=== PATIENT | female | born 1940 | race Caucasian/White ===

== ENCOUNTER 2021-01-13 09:00 | Outpatient (RCR) | payer MEDICARE, SELFPAY ==
--- NOTE | 2020-12-23 10:22 | PTOPEVAL ---
INITIAL PHYSICAL THERAPY EVALUATION and PLAN OF CARE Thank you for referring Parisa Cancino to [facility].? Parisa is scheduled to be seen for physical therapy? 1x/week for 3 weeks. Please review, sign, date and return this plan of care ERNESTO. I agree with and certify that the following plan of care is medically necessary. Referring Physician Date Admitting Provider: Attending Provider: Robbie Napier, MD Referring Provider: *PT Outpatient Evaluation Start: 12/23/20 09:09 Freq: Status: Active Protocol: Document 12/23/20 09:05 ABILIO (Rec: 12/23/20 10:19 ABILIO [id number]) Therapy Assessment Status Assessment Status Assessment Status Evaluation Outpatient Past Medical History Past Medical History Source of Past Medical History Patient Cardiovascular History Hx Hypertension Yes Gastrointestinal History Hx Diverticulitis Yes: surgery 2018 Musculoskeletal History Hx Arthritis Yes: generalized Hx Back Pain Yes Endocrine History Hx Diabetes Yes HEENT History Hx Cataracts Yes: bilat surgery Reproductive History Hx Hysterectomy Yes: 1985 Evaluation Information Problem Diagnosis peripheral neuropathy Onset year and a half for balance, tingling x several years Subjective Information December reports being off balance Query Text:As Reported By Patient/ every once in awhile with Family activities. Tingling sensation into feet off and on x several years. Does have 2 gum ball trees in front of her yard - has fallen on them. Also has back problems. Tries to keep up yard work - getting more difficult as she ages. Prior Level of Function Activity Level (Last 3 Months) Occupation retired Hand Dominance Right Medications Home Meds (Include: OTC, RX, Vitamins, amolodipine, Metformin, Herbals, Dose, Route,and Frequency) hydroclorothiazide, Vitamins, Query Text:Home Med Entries Will No Calcium, eye drops, baby Longer Recall From Past Visits. Home aspirin Meds Must Be Re-entered With Each Visit. Home Setting Home Type House,Multiple Levels Environmental Barriers Stairs, 2-4,Stairs, Greater than 4 Living Situation Alone Mobility Assistive Devices (Used Last 3 None Months) Comments Additional Prior Level of Function recreation - listen to sons Comments play music, babysits great
--- NOTE | 2021-01-01 08:31 | PCPTNOTE ---
Patient did not show up for scheduled appointment this date. Called patient - phone number was no longer in service.
--- NOTE | 2021-01-13 13:54 | PTOPEVAL ---
PHYSICAL THERAPY DISCHARGE SUMMARY Thank you for referring Parisa Cancino to [facility].? Parisa has been seen x 3 visits. She has made gains with balance ability - especially on uneven ground. She is to continue with her HEP. I agree with Parisa's discharge from PT. Referring Physician Date Admitting Provider: Attending Provider: Robbie Napier, MD Referring Provider: Therapy Assessment Status Assessment Status Assessment Status Discharge Evaluation Information Problem Diagnosis peripheral neuropathy Subjective Information Parisa states that she is more Query Text:As Reported By Patient/ confident walking around Family outside. She was even able to walk on some landscape stone without fear of falling. She would like to start walking again - but the weather is too hot for her right now. Pain Assessment Timing of Pain Assessment Timing of Pain Assessment Assessment Self Report Self Report Pain Level 0 Pain Score Pain Score 0: Self Report Lower Extremity Muscle Strength Testing Hip Strength Bilateral Hip Abduction Strength 4 Good Balance Assessment Guardado Balance Assessment Sitting to Standing Independent w/out Hands Unsupported Stance Ability Safely- 2 minutes Sitting Unsupported, Feet on Floor Safely- 2 minutes Standing to Sitting Safely, Minimal Hand Use Transfer Ability Safely, Minimal Hand Use Unsupported Stance- Eyes Closed Safely, 10 seconds Unsupported Stance- Feet Together Independent, 1 minute Reaching Forward while Standing Confidently, 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 From Floor Independent/Safe Look Behind Shoulder - Standing Shifts Weight Well Turning 360 Degrees Turns Bilateral, < 4 secs Unsupported Stance, Alternating Feet on (I)- 8 Steps in 20 secs Stair Unsupported Tandem Stance Small Step- 30 seconds Unilateral Leg Stance Lifts Leg/Unable to Hold GUARDADO Balance Evaluation Total Score (/56 51 points) Comments standing on foam - eyes closed - sway but stable - 30 sec Time Up Go (TUG) Assistive Devices None Comments 9.56 5 Time Sit to Stand Time in Seconds 12.28 5 Time Sit to Stand Comments hands across chest Query Text:Normative Data: If Greater Than 15 Seconds, 74% Increase Risk for Recurrent Falls Stair Climbing Assessment Stair Climbing Assessment Number of Steps Climbed (Steps) 4 Number of Repetitions (Repetitions) 1 Technique Alternating Steps Stair Climbing Direction Both Up and Down Stair Climbing Comments using 1 railing - safe pattern
== END 2021-01-18 12:38 | disposition home or self-care (01) ==
LOC: ANHHIPT 09:00
PROVIDERS: PCP Internal Medicine; Visit Provider Internal Medicine
DX: G62.9 Polyneuropathy, unspecified (principal); R26.2 Difficulty in walking, not elsewhere classified
CPT/HCPCS: 97110; 97162

== ENCOUNTER 2021-02-24 00:17 | Day surgery (SDC) | payer MEDICARE, SELFPAY ==
[2021-02-16 14:09] VITALS: BMI 34.4
[2021-02-24 06:58] VITALS: BP 183/100; PULSE 104; RESP 24; TEMP 36.2; O2SAT 98; BMI 32.5
--- NOTE | 2021-02-24 07:07 | WPDANESEPPF ---
Anes - Initial Pre Proc Eval Procedure: Operation Date: 02/24/21 08:00 Proposed Procedures p Colonoscopy - Rudi Sin MD Date/Time: 02/24/21 07:07 Surgeon: Rudi Sin MD Pre Op Diagnosis: positive cologuard Patient Data Age: 80 Gender: F Height: 1.52 m Weight: 75.5 kg Last Vital Signs Temp 36.2 C L 02/24/21 06:58 Pulse 104 H 02/24/21 06:58 Resp 24 H 02/24/21 06:58 BP 183/100 H 02/24/21 06:58 Pulse Ox 98 02/24/21 06:58 Allergies Allergy/AdvReac Type Severity Reaction Status Date / Time No Known Allergies Allergy Verified 02/24/21 06:57 Home Medications Medication Instructions Recorded Confirmed Type amlodipine 5 mg tablet 5 mg PO DAILY 05/16/19 02/16/21 History aspirin 81 mg tablet,delayed 81 mg PO DAILY 05/16/19 02/16/21 History release hydrochlorothiazide 12.5 mg capsule 12.5 mg PO DAILY 05/16/19 02/16/21 History metformin 500 mg tablet 500 mg PO BID 05/16/19 02/16/21 History multivitamin 1 cap PO DAILY 05/16/19 02/16/21 History vitamins A,C,D-xbrg-atlsfu 14,320 1 cap PO ONCE cap 05/16/19 02/16/21 History unit-226 mg-200 unit capsule Patient hx anesthesia problems: none Family hx anesthesia problems: none PMFSH Past Medical History Medical History Diabetes History of benign breast tumor Hypertension Surgical History Surgical History History of back surgery History of cataract extraction with lens replacement History of colon surgery History of eye surgery History of hammer toe correction History of hysterectomy Family History Family History Mother Heart disease Father Heart disease Sibling Cancer Other Diabetes mellitus Family history of malignant neoplasm Social History Social History Smoking status: Former smoker Smoking end date: 07/10/89 Additional smoking assessment comments: QUIT 1989 Alcohol intake: former Substance use: never Living arrangements: alone Gender identity (if verbalized by the patient): Female Spiritual care concerns: No Anes - Eval Final PreProcedure Day of Procedure 02/24/21 07:07 Patient weight: obese Heart: tachycardia Lungs: clear to auscultation Airway: Mallampati scale class II Neurological: alert and oriented Last oral intake: >/= 8 hours ASA classification: III Emergent: no Anesthetic plan: proceed Anesthesia type and monitoring: general GIVS and standard monitoring Informed Consent: The patient's anesthetic plan and its attendant risks and benefits were discussed with the patient/family/POA. Questions were solicited and answers provided to the satisfaction of the patient/family/POA.
[2021-02-24] MEDS: LACTATED RINGERS 1,000 ML 150 ML IV CONT (07:09)
[2021-02-24 07:11] LABS: Glucose Point of Care 128 mg/dl (65-105)
--- NOTE | 2021-02-24 07:12 | WPDANESEPPF ---
Anes - Initial Pre Proc Eval Procedure: Operation Date: 02/24/21 08:00 Proposed Procedures p Colonoscopy - Rudi Sin MD Date/Time: 02/24/21 07:12 Surgeon: Rudi Sin MD Pre Op Diagnosis: positive cologuard Patient Data Age: 80 Gender: F Height: 1.52 m Weight: 75.5 kg Last Vital Signs Temp 36.2 C L 02/24/21 06:58 Pulse 104 H 02/24/21 06:58 Resp 24 H 02/24/21 06:58 BP 183/100 H 02/24/21 06:58 Pulse Ox 98 02/24/21 06:58 Allergies Allergy/AdvReac Type Severity Reaction Status Date / Time No Known Allergies Allergy Verified 02/24/21 06:57 Home Medications Medication Instructions Recorded Confirmed Type amlodipine 5 mg tablet 5 mg PO DAILY 05/16/19 02/16/21 History aspirin 81 mg tablet,delayed 81 mg PO DAILY 05/16/19 02/16/21 History release hydrochlorothiazide 12.5 mg capsule 12.5 mg PO DAILY 05/16/19 02/16/21 History metformin 500 mg tablet 500 mg PO BID 05/16/19 02/16/21 History multivitamin 1 cap PO DAILY 05/16/19 02/16/21 History vitamins A,C,Z-entl-sgroqq 14,320 1 cap PO ONCE cap 05/16/19 02/16/21 History unit-226 mg-200 unit capsule Laboratory Tests 02/24/21 07:06 POC Capillary Glucose 128 mg/dl H mg/dl (65-105) Patient hx anesthesia problems: none Family hx anesthesia problems: none PMFSH Past Medical History Medical History Diabetes History of benign breast tumor Hypertension Surgical History Surgical History History of back surgery History of cataract extraction with lens replacement History of colon surgery History of eye surgery History of hammer toe correction History of hysterectomy Family History Family History Mother Heart disease Father Heart disease Sibling Cancer Other Diabetes mellitus Family history of malignant neoplasm Social History Social History Smoking status: Former smoker Smoking end date: 07/10/89 Additional smoking assessment comments: QUIT 1989 Alcohol intake: former Substance use: never Living arrangements: alone Gender identity (if verbalized by the patient): Female Spiritual care concerns: No Anes - Eval Final PreProcedure Day of Procedure 02/24/21 07:12 Patient weight: obese Heart: tachycardia Lungs: clear to auscultation Airway: Mallampati scale class II Neurological: alert and oriented Last oral intake: >/= 8 hours ASA classification: III Emergent: no Anesthetic plan: proceed Anesthesia type and monitoring: general GIVS and standard monitoring Informed Consent: The patient's anesthetic plan and its attendant risks and benefits were discussed with the patient/family/POA. Questions were solicited and answers provided to the satisfaction of the patient/family/POA.
--- NOTE | 2021-02-24 07:43 | WPDGICN ---
Assessment and Plan Assessment and plan (1) Positive colorectal cancer screening using Cologuard test: Code(s): R19.5 - Other fecal abnormalities Status: Acute Assessment and Plan: Recent Cologuard test was performed and found to be positive for this reason screening colonoscopy advised. (2) History of colon polyps: Code(s): Z86.010 - Personal history of colonic polyps Status: Acute Assessment and Plan: Patient has prior history of colon polyps. For this reason colonoscopy advised now added intervals in the future. (3) Family history of colon cancer in father: Code(s): Z80.0 - Family history of malignant neoplasm of digestive organs Status: Acute Assessment and Plan: Patient's father has had colon cancer for this reason screening colonoscopy advised. GI Consult Note Consult date/time: 02/24/21 07:43 HPI: Parisa Cancino is a 80 year old female Is referred because of a positive Cologuard test. Patient has a family history of colon cancer in her father her sister has had colon polyps. Patient has had colon polyps in the past as well. Most recent colonoscopy was 6 years ago. She denies any blood in her stools. Weight appetite bowel movements are normal. Family history is as stated. Colonoscopy will be performed today. Review of Systems Review of Systems: All systems reviewed & are unremarkable except as noted in HPI and below PMFSH Past Medical History Medical History (Updated 02/24/21 @ 07:45 by Rudi Sin MD) Diabetes History of benign breast tumor Hypertension Surgical History Surgical History History of back surgery History of cataract extraction with lens replacement History of colon surgery History of eye surgery History of hammer toe correction History of hysterectomy Family History Family History Mother Heart disease Father Heart disease Sibling Cancer Other Diabetes mellitus Family history of malignant neoplasm Social History Social History Smoking status: Former smoker Smoking end date: 07/10/89 Additional smoking assessment comments: QUIT 1989 Alcohol intake: former Substance use: never Living arrangements: alone Gender identity (if verbalized by the patient): Female Spiritual care concerns: No Meds Home Medications and Allergies Home Medications Medication Instructions Recorded Confirmed Type amlodipine 5 mg tablet 5 mg PO DAILY 11/07/19 08/10/21 History aspirin 81 mg tablet,delayed 81 mg PO DAILY 05/16/19 02/16/21 History release hydrochlorothiazide 12.5 mg capsule 12.5 mg PO DAILY 05/16/19 02/16/21 History metformin 500 mg tablet 500 mg PO BID 05/16/19 02/16/21 History multivitamin 1 cap PO DAILY 05/16/19 02/16/21 History vitamins A,C,L-fqby-mimqqc 14,320 1 cap PO ONCE cap 05/16/19 02/16/21 History unit-226 mg-200 unit capsule Allergies Allergy/AdvReac Type Severity Reaction Status Date / Time No Known Allergies Allergy Verified 02/24/21 06:57 Vital Signs Vital Signs - 24 hr 02/24/21 06:58 Temperature 97.2 F L Pulse Rate 104 H Respiratory Rate 24 H Blood Pressure 183/100 H Pulse Oximetry 98 Exam Narrative: Physical exam reveals patient to be alert. Vital signs stable. HEENT exam is unremarkable. Patient is anicteric. Lungs are clear to auscultation and percussion. Heart is without murmur or extra sounds. Abdominal exam bowel sounds are present soft nontender with no organomegaly. Digital external rectal exam is normal.
[2021-02-24 08:12] VITALS: BP 101/62; PULSE 89; RESP 24; O2SAT 95
[2021-02-24 08:22] VITALS: BP 124/73; PULSE 82; RESP 18; O2SAT 97
[2021-02-24 08:32] VITALS: BP 160/85; PULSE 89; RESP 20; O2SAT 97
== END 2021-02-24 08:50 | disposition home or self-care (01) ==
PROVIDERS: PCP Internal Medicine; Visit Provider Internal Medicine Gastroenterology
PROC: 0DJD8ZZ Inspection of Lower Intestinal Tract, Via Natural or Artificial Opening Endoscopic (ICD-10-PCS; CPT 45378; principal; 2021-02-24 08:00)
DX: R19.5 Other fecal abnormalities (principal); K57.30 Diverticulosis of large intestine without perforation or abscess without bleeding; D12.2 Benign neoplasm of ascending colon; D12.5 Benign neoplasm of sigmoid colon; K63.5 Polyp of colon; Z98.0 Intestinal bypass and anastomosis status; K64.8 Other hemorrhoids; Z80.0 Family history of malignant neoplasm of digestive organs; I10 Essential (primary) hypertension; E11.9 Type 2 diabetes mellitus without complications; Z87.891 Personal history of nicotine dependence; Z79.84 Long term (current) use of oral hypoglycemic drugs; Z79.82 Long term (current) use of aspirin; Z90.49 Acquired absence of other specified parts of digestive tract; E66.9 Obesity, unspecified; Z68.32 Body mass index [BMI] 32.0-32.9, adult
CPT/HCPCS: 45385; 82948; 88305; J2704; J7120

== ENCOUNTER 2022-12-22 12:12 | Outpatient (NON) | payer MEDICARE, SELFPAY | END 2022-12-22 12:13 | disposition home or self-care (01) | LOC: ANHLAB 12-23 12:14 | PROVIDERS: PCP Family Medicine; Visit Provider Nurse Practitioner | DX: D49.2 Neoplasm of unspecified behavior of bone, soft tissue, and skin (principal) | CPT/HCPCS: 88305 ==

== ENCOUNTER → 2023-05-11 10:02 | Outpatient (CLI) | payer MEDICARE, SELFPAY ==
--- NOTE | ~2023-05-11 | MM_ITS ---
EXAMINATION: MM screening rashmi BI w zack HISTORY: Screening mammogram, family history of breast cancer in her sister. TECHNIQUE: Craniocaudal and mediolateral oblique 3-D tomosynthesis images were obtained and synthetic 2-D images were generated. CAD analysis was submitted and interpreted. COMPARISON: No prior mammogram is available for comparison at this institution. BREAST PARENCHYMAL COMPOSITION: There are scattered areas of fibroglandular density. FINDINGS: Scattered benign-appearing calcifications are present. No suspicious mass, calcification, o r architectural distortion are identified in either breast to suggest malignancy. IMPRESSION: 1. No mammographic evidence of malignancy. 2. Recommend routine screening mammography while the patient remains in good health. BI-RADS Category 2: Benign finding(s). Reviewed, dictated and finalized at location A. IMPRESSION: 1. No mammographic evidence of malignancy. 2. Recommend routine screening mammography while the patient remains in good he alth. BI-RADS Category 2: Benign finding(s).
== END ==
PROVIDERS: PCP Family Medicine
DX: Z12.31 Encounter for screening mammogram for malignant neoplasm of breast (principal)
CPT/HCPCS: 77063; 77067